=== PATIENT | female | born 1990 | race Caucasian/White ===

== ENCOUNTER 2021-05-16 18:53 | Day surgery (SDC) | payer OTHER | END 2021-05-16 19:20 | disposition home or self-care (01) | LOC: CSHLD/OP 18:53 | PROVIDERS: ATTEND Family Medicine | DX: M54.9 Dorsalgia, unspecified (principal); Z53.21 Procedure and treatment not carried out due to patient leaving prior to being seen by health care provider ==

== ENCOUNTER 2021-06-25 16:11 | Day surgery (SDC) | payer OTHER ==
[2021-06-25 16:53] VITALS: BMI 32.5
[2021-06-25] MEDS ORDERED: hydrALAZINE 20 MG/ML VIAL SLOW IVP PRN (17:10)
[2021-06-25 17:31] LABS: Bilirubin Neg (Negative); Blood, Urine Negative (Negative); Clarity Clear (Clear); Glucose, Urine (Dipstick) Normal (Negative); Ketone, Urine Negative (Negative); Leukocyte Negative (Negative); Nitrite Negative (Negative); Protein, Urine (Dipstick) Negative (Neg-Trace); Urobilinogen Normal mg/dL (Less than 2)
[2021-06-25 17:37] LABS: Urine Culture Reflex No No
[2021-06-25 17:45] LABS: Bacteria/HPF Rare-Few HPF (None Seen); RBC/HPF None Seen HPF (0-3); Squamous Epithelial 0-3 HPF (0-3); WBC/HPF 0-3 HPF (0-3)
== END 2021-06-25 19:05 | disposition home or self-care (01) ==
LOC: CSHLD/OP 16:11
PROVIDERS: ATTEND Family Medicine
DX: O23.593 Infection of other part of genital tract in pregnancy, third trimester (principal); B96.89 Other specified bacterial agents as the cause of diseases classified elsewhere; O24.410 Gestational diabetes mellitus in pregnancy, diet controlled; O34.211 Maternal care for low transverse scar from previous cesarean delivery; Z3A.35 35 weeks gestation of pregnancy
CPT/HCPCS: 81001; 87480; 87510; 87660; 99284

== ENCOUNTER 2021-06-27 18:38 | Day surgery (SDC) | payer OTHER ==
[2021-06-27 19:06] VITALS: BMI 33.7
[2021-06-27] MEDS ORDERED: hydrALAZINE 20 MG/ML VIAL SLOW IVP PRN (22:01)
== END 2021-06-27 20:10 | disposition home or self-care (01) ==
LOC: CSHLD/OP 18:38
PROVIDERS: ATTEND Family Medicine
DX: O36.8130 Decreased fetal movements, third trimester, not applicable or unspecified (principal); O24.410 Gestational diabetes mellitus in pregnancy, diet controlled; O34.219 Maternal care for unspecified type scar from previous cesarean delivery; Z3A.35 35 weeks gestation of pregnancy; Z79.2 Long term (current) use of antibiotics
CPT/HCPCS: 99282